=== PATIENT | male | born 1990 | race African-American/Black ===

== ENCOUNTER 2017-11-02 15:18 | Emergency (ER) | payer SELFPAY ==
[~2017-11-02] VITALS: Ht 193 cm; Wt 88.5 kg
[2017-11-02 15:20] VITALS: BP 142/93
== END 2017-11-02 17:54 | disposition home or self-care (01) ==
LOC: ER 15:24
DX: R51 Headache (principal)
CPT/HCPCS: A4606; Z7610

== ENCOUNTER 2017-11-26 08:03 | Emergency (ER) | payer SELFPAY ==
[~2017-11-26] VITALS: Ht 193 cm; Wt 97.5 kg
[2017-11-26 08:03] VITALS: BP 135/62
== END 2017-11-26 08:57 | disposition home or self-care (01) ==
LOC: ER 08:04
DX: J32.9 Chronic sinusitis, unspecified (principal)
CPT/HCPCS: A4606; Z7610